=== PATIENT | female | born 1995 ===

== ENCOUNTER 2016-09-26 11:16 | Emergency (ER) | payer OTHER ==
--- NOTE | 2016-09-26 11:38 | CPEKG ---
Heart Rate: 78 RR Interval: 769 P-R Interval: 136 QRSD Interval: 100 QT Interval: 376 QTC Interval: 429 P Calder: 53 QRS Calder: 62 T Wave Calder: 27 EKG Severity - NORMAL ECG - EKG Impression: SINUS RHYTHM Electronically Signed By: Obed Sheridan 26-Sep-2016 12:15:03
--- NOTE | 2016-09-26 13:04 | EDPHY ---
H & P Stated Complaint: heart feels fast/tight HPI/ROS: CHIEF COMPLAINT: Chest pain, palpitations HISTORY OF PRESENT ILLNESS: Patient reports an episode of SVT this morning. She describes as chest pain and palpitations. The pain in the left side. Sudden onset. Short duration. Nearly resolved at this time. Feels similar to her previous episodes of SVT. She is under the care of a placement coordinator with metoprolol that she takes daily. She normally has episodes every 6 months or so. Had a very short when yesterday and the symptoms returned today at work. She has pain over the lower left costal margin. No abdominal pain. No nausea or vomiting. No syncope. No flank pain. No urinary complaints. No changes in her medications. No other associated complaints or modifying factors. REVIEW OF SYSTEMS: Ten systems reviewed and are negative unless otherwise noted in the HPI PERTINENT MEDICAL HISTORY: SVT EXAMINATION General Appearance: Alert, no distress Head: normocephalic, atraumatic Eyes: Pupils equal and round, no conjunctival pallor or injection ENT, Mouth: Mucous membranes moist. Uvula midline. No erythema or edema. Neck: Normal inspection, supple, non-tender Respiratory: Lungs are clear to auscultation. No wheezing, rhonchi or crackles. Cardiovascular: Regular rate and rhythm. No murmur. Pulses intact distally. Gastrointestinal: Abdomen is soft and nontender Back: non-tender, no bony abnormalities Neurological: A&O, nonfocal, normal gait Skin: Warm and dry, no rash Extremities: Nontender, no pedal edema Psychiatric: Mood and affect normal DIFFERENTIAL DIAGNOSES: Including but not limited to SVT, costochondritis, pleurisy, pericarditis, fracture, pneumonia MDM: 12:05 p.m. The reports of chest pain with episode of supraventricular tachycardia. This is the same as her previous incident. This is a left-sided chest pain that is worse with inspiration and movement of the ribs. She has no chest pain exertion. At time of my examination, pain has significantly improved if not resolved. She feels occasional palpitations. She has not been lightheaded, dizzy or had any syncope. She takes metoprolol daily. EKG is unremarkable. 1:20 p.m. I have re-evaluated the patient. I have updated her regarding the EKG and chest x-ray findings. She is resting comfortably and has no complaints of any symptoms at this time. She initially declined laboratory studies and she still declines them. She feels that was her SVT and she is feeling significantly better. She is comfortable being discharged home. I would like her to contact her placement coordinator in [place] to discuss any changes in medication of follow-up care with them. She is comfortable this plan she will be discharged home stable condition. She is to return to the ER for any return of her symptoms. SUPERVISION: This patient was independently evaluated without direct examination by the attending physician. Case was discussed with attending physician. Case discussed with Dr. Sheridan Source: Patient Exam Limitations: No limitations - Personal History LMP (Females 10-55): 8-14 Days Ago Current Tetanus/Diphtheria Vaccine: Unsure - Medical/Surgical History Hx Asthma: No Hx Chronic Respiratory Disease: No Hx Diabetes: No Hx Cardiac Disease: Yes Hx Renal Disease: No Hx Cirrhosis: No Hx Alcoholism: No Hx HIV/AIDS: No Hx Splenectomy or Spleen Trauma: No Other PMH: svt - Social History Smoking Status: Never smoked Constitutional: Initial Vital Signs Temperature (C) 97.7 F 09/26/16 11:19 Heart Rate 106 H 09/26/16 11:19 Respiratory Rate 24 H 09/26/16 11:19 Blood Pressure 136/84 H 09/26/16 11:19 O2 Sat (%) 99 09/26/16 11:19 O2 Delivery Mode Room Air Allergies/Adverse Reactions: No Known Allergies Allergy (Verified 09/26/16 11:17) Home Medications: Medication Instructions Recorded Bcp 03/01/14 Metoprolol Succinate 09/26/16 Spironolactone 09/26/16 Medical Decision Making - Diagnostics Imaging Results: Imaging Impressions Chest X-Ray 09/26/16 12:05 Impression: No acute pulmonary disease. Departure - Departure Disposition: Home, Routine, Self-Care Clinical Impression: SVT (supraventricular tachycardia) Chest pain Qualifiers: Chest pain type: chest pain on breathing Qualified Code(s): R07.1 - Chest pain on breathing Condition: Good Instructions: Chest Pain (ED), Pleurisy (ED), Costochondritis (ED) Additional Instructions: Contact established placement coordinator. Return to the ER for return of symptoms. Referrals: [facility] [Other] - As per Instructions
[2016-09-26 13:52] VITALS: BP 130/89; PULSE 70; RESP 14; TEMP 98.4; O2SAT 94
== END 2016-09-26 13:52 | disposition home or self-care (01) ==
DX: I47.1 Supraventricular tachycardia (principal)